=== PATIENT | male | born 1955 | race Caucasian/White ===

== ENCOUNTER → 2023-02-04 14:12 | Outpatient (BNVA) | payer MEDICARE, SELFPAY | PROVIDERS: PCP Family Medicine; Visit Provider Internal Medicine Rheumatology | DX: M17.12 Unilateral primary osteoarthritis, left knee (principal); Z79.899 Other long term (current) drug therapy; G89.29 Other chronic pain; M35.3 Polymyalgia rheumatica | CPT/HCPCS: 36415; 73562; 85651; 86140; 86200; 86431; 99204 ==

== ENCOUNTER → 2023-05-07 09:33 | Outpatient (BNVA) | payer MEDICARE, SELFPAY | PROVIDERS: PCP Family Medicine; Visit Provider Internal Medicine Rheumatology | DX: M35.3 Polymyalgia rheumatica (principal); E11.9 Type 2 diabetes mellitus without complications; M25.562 Pain in left knee; G89.29 Other chronic pain; M19.90 Unspecified osteoarthritis, unspecified site; I10 Essential (primary) hypertension | CPT/HCPCS: 36415; 80076; 82565; 83036; 83520; 85025; 86140; 99214 ==

== ENCOUNTER → 2023-08-06 10:45 | Outpatient (BNVA) | payer MEDICARE, SELFPAY | PROVIDERS: PCP Family Medicine; Visit Provider Internal Medicine Rheumatology | DX: M19.90 Unspecified osteoarthritis, unspecified site (principal); M35.3 Polymyalgia rheumatica; M25.562 Pain in left knee; G89.29 Other chronic pain; I10 Essential (primary) hypertension | CPT/HCPCS: 99214 ==